=== PATIENT | female | born 1990 | race Caucasian/White ===

== ENCOUNTER 2022-07-22 19:02 | Emergency (ER) | payer SELFPAY ==
[~2022-07-22 19:02] MED LIST: BIRTH CONTROL1 EAC1; CLINDAMYCIN150 MG PO; MOTRIN800 MG PO; VICODIN 5/500 505 MG PO
[2022-07-22] MEDS ORDERED: Ondansetron4 MG PO (20:44)
== END 2022-07-23 00:45 | disposition home or self-care (01) ==
LOC: ED 19:02
DX: T40.1X1A Poisoning by heroin, accidental (unintentional), initial encounter (principal); Z88.8 Allergy status to other drugs, medicaments and biological substances; Z98.890 Other specified postprocedural states; Y92.89 Other specified places as the place of occurrence of the external cause